=== PATIENT | male | born 1945 | race Caucasian/White ===

== ENCOUNTER 2025-09-29 08:34 | Day surgery (SDC) | payer MEDICARE ==
[2025-09-29] MEDS ORDERED: Propofol 200 MG/20 ML SDV ONE (08:51)
[2025-09-29] MEDS ORDERED: Ondansetron 4 MG/2 ML SDV ONE (08:51)
[2025-09-29] MEDS ORDERED: Glycopyrrolate 0.2 MG/ML 5 ML MDV ONE (08:51)
[2025-09-29] MEDS ORDERED: Dexamethasone 4 MG/ML SDV ONE (08:51)
[2025-09-29] MEDS ORDERED: Succinylcholine 200 MG/10 ML MDV ONE (08:51)
[2025-09-29] MEDS ORDERED: fentaNYL 250 MCG/5 ML SDV ONE (08:51)
[2025-09-29 09:00] LABS: PLATELET COUNT,PLT 336.0 K/uL (130-375); RED BLOOD CELL COUNT 4.93 M/uL (4.14-5.76); WHITE BLOOD CELL COUNT,WBC 9.1 K/uL (3.2-11.0)
[2025-09-29 09:16] LABS: BLOOD UREA NITROGEN,BUN 13 mg/dL (7-18); CARBON DIOXIDE,CO2 29 mmol/L (21-32); CHLORIDE,CL 103 mmol/L (100-108); CREATININE 1.2 mg/dL (0.8-1.3); ESTIMATED GFR 62 mL/min (>60); GLUCOSE RANDOM 103 mg/dL (74-106); POTASSIUM,K 3.5 mmol/L (3.6-5.2); SODIUM,NA 140 mmol/L (140-148)
[2025-09-29] MEDS: Lactated Ringers 1,000 ML IV SCH (09:25)
[2025-09-29] MEDS: metroNIDAZOLE/Normal Saline 500 MG in Premix Bag 1 BAG IV ONE (09:26)
[2025-09-29] MEDS ORDERED: Ketorolac 30 MG/ML SDV ONE (10:51)
[2025-09-29] MEDS ORDERED: Lactated Ringers 1,000 ML ONE (11:22)
[2025-09-29] MEDS: Acetaminophen/HYDROcodone 325-5 MG Tab PO PRN (12:39)
== END 2025-09-29 14:10 | disposition home or self-care (01) ==
LOC: JP.SDS 08:34
PROVIDERS: ATTEND Surgery
DX: K40.90 Unilateral inguinal hernia, without obstruction or gangrene, not specified as recurrent (principal)
CPT/HCPCS: 00830; 36415; 49505; 80048; 85027; A9270; C1781; J0169; J0330; J0665; J0690; J1100; J2405; J2704; J2710; J2795; J3010; J7120; J1596; J1836; J1885; J3490